=== PATIENT | male | born 1995 | race Caucasian/White ===

== ENCOUNTER 2020-01-02 00:25 | Emergency (ER) | payer OTHER ==
[~2020-01-02] VITALS: Ht 180.3 cm; Wt 65.0 kg
[2020-01-02 00:52] VITALS: BP 127/80
== END 2020-01-02 02:07 | disposition left against medical advice (07) ==
LOC: ER 00:26
DX: G56.31 Lesion of radial nerve, right upper limb (principal); F17.200 Nicotine dependence, unspecified, uncomplicated; F12.90 Cannabis use, unspecified, uncomplicated
CPT/HCPCS: 99281

== ENCOUNTER 2020-11-14 15:40 | Emergency (ER) | payer OTHER ==
[~2020-11-14] VITALS: Ht 180.3 cm; Wt 61.7 kg
[2020-11-14 16:15] VITALS: BP 107/70
[2020-11-14] MEDS ORDERED: CEPH250T PO (17:41)
[2020-11-14] MEDS ORDERED: TETanus/Pertussis (Acell)/Diphther VAC/PF (Tdap-Adult) 0.5ml syringe IMVAC ONE (17:45)
== END 2020-11-14 18:13 | disposition home or self-care (01) ==
LOC: ER 15:41
DX: L02.413 Cutaneous abscess of right upper limb (principal); F12.90 Cannabis use, unspecified, uncomplicated; F11.90 Opioid use, unspecified, uncomplicated; Z79.2 Long term (current) use of antibiotics
CPT/HCPCS: 10060; 90715; 99283